=== PATIENT | male | born 1980 | race Two or more races ===

== ENCOUNTER 2019-03-13 07:52 | Emergency (ER) | payer OTHER ==
[~2019-03-13] VITALS: Ht 175.3 cm; Wt 81.6 kg
[2019-03-13 08:36] LABS: Basophils # (auto) 0 uL; Basophils % (auto) 0.3 % (0.0-2.0); Eosinophils # (auto) 0 uL; Eosinophils % (auto) 0.1 % (0.0-7.0); Hemoglobin 15.7 g/dL (13.5-17.5); Lymphocytes # (auto) 0.8 uL; Lymphocytes % (auto) 6.7 % (10.0-50.0); Mean Corpuscular Hemoglobin 30.2 pg (28.0-32.0); Mean Corpuscular Hgb Conc. 34.1 g/dL (32.0-36.0); Mean Corpuscular Volume 88.6 fL (80.0-100.0); Monocytes # (auto) 1.2 uL; Monocytes % (auto) 10.1 % (0.0-12.0); Neutrophils # (auto) 9.7 uL; Neutrophils % (auto) 82.8 % (37.0-80.0); Nucleated Red Blood Cells % 0.1 %; Platelet Count (auto) 198 10^3/uL (140-450); Red Blood Cells 5.19 10^6/uL (4.5-5.90); Red Cell Distribution Width 13.9 % (11.8-14.3); White Blood Cell 11.8 10^3/uL (4.4-10.8)
[2019-03-13 08:53] LABS: Alanine Aminotransferase 29 U/L (16-61); Albumin 4.2 g/dL (3.4-5.0); Anion Gap 8 (5-15); Aspartate Aminotransferase 17 U/L (15-37); Blood Urea Nitrogen 10 mg/dL (7-18); Calcium 8.8 mg/dL (8.5-10.1); Carbon Dioxide 25 mmol/L (21-32); Chloride 111 mmol/L (98-107); GFR African American 107 mL/min; GFR Non-African American 88 mL/min; Glucose 110 mg/dL (74-106); Magnesium 2.3 mg/dL (1.6-2.6); Potassium 3.6 mmol/L (3.5-5.1); Sodium 144 mmol/L (136-145)
[2019-03-13 08:58] LABS: Alkaline Phosphatase 79 U/L (45-117); Bilirubin, Total 0.8 mg/dL (0.2-1.0); Total Protein 7.7 g/dL (6.4-8.2)
[2019-03-13] MEDS ORDERED: SODIUM CHLORIDE 0.9% 1,000 ML IV ONE (09:27)
[2019-03-13] MEDS ORDERED: LORazepam 2MG/ML-1ML VIAL IV ONE (09:30)
[2019-03-13 10:02] LABS: Amphetamine Screen, Urine NEGATIVE (NEGATIVE); Barbiturate Scree,Urine NEGATIVE (NEGATIVE); Benzodiazephine Screen, Urine NEGATIVE (NEGATIVE); Cannabinoid Screen, Urine NEGATIVE (NEGATIVE); Cocaine Screen, Urine POSITIVE (NEGATIVE); Opiate Scree,Urine NEGATIVE (NEGATIVE); Phencyclidine Screen, Urine NEGATIVE (NEGATIVE)
[2019-03-13 10:18] LABS: Urine Bacteria NONE SEEN /hpf (None Seen); Urine Blood Negative /uL (Negative); Urine Hyaline Cast FEW /lpf (0 - 2); Urine Mucus FEW (None Seen); Urine Specific Gravity 1.031 (1.001-1.035); Urine Sperm PRESENT /hpf (None Seen); Urine WBC 4 /hpf (0 - 3)
[2019-03-13 13:26] VITALS: BP 115/77
== END 2019-03-13 13:28 | disposition home or self-care (01) ==
LOC: EDBD 07:52 → ER 07:52
DX: R07.89 Other chest pain (principal); F41.9 Anxiety disorder, unspecified; F10.10 Alcohol abuse, uncomplicated; F14.10 Cocaine abuse, uncomplicated; E78.5 Hyperlipidemia, unspecified
CPT/HCPCS: 36415; 71046; 80053; 80307; 81001; 83735; 84484; 85025; 93005; 94761; 96374; 99284; J2060; J7030

== ENCOUNTER 2020-05-28 19:46 | Inpatient (IN) | payer OTHER ==
[~2020-05-28] VITALS: Ht 180.3 cm; Wt 80.0 kg
[2020-05-28] MEDS ORDERED: ASPirin 81 mg TAB PO ONE (20:15)
[2020-05-28] MEDS ORDERED: SODIUM CHLORIDE 0.9% 500 ML IV ONE (20:15)
[2020-05-28 20:47] LABS: Basophils # (auto) 0.1 10 ^3/uL (0-0.2); Basophils % (auto) 1.1 % (0.0-2.0); Eosinophils # (auto) 0.3 10 ^3/uL (0-0.8); Eosinophils % (auto) 5.2 % (0.0-7.0); Hematocrit 47.6 % (41.0-53.0); Hemoglobin 15.8 g/dL (13.5-17.5); Lymphocytes # (auto) 1.9 10 ^3/uL (0.4-5.4); Mean Corpuscular Hemoglobin 29.6 pg (28.0-32.0); Mean Corpuscular Hgb Conc. 33.2 g/dL (32.0-36.0); Mean Corpuscular Volume 89.4 fL (80.0-100.0); Monocytes # (auto) 0.7 10 ^3/uL (0-1.3); Monocytes % (auto) 11.5 % (0.0-12.0); Neutrophils # (auto) 2.8 10 ^3/uL (1.6-8.6); Neutrophils % (auto) 49.2 % (37.0-80.0); Nucleated Red Blood Cells % 0.1 %; Platelet Count (auto) 188 10^3/uL (140-450); Red Blood Cells 5.32 10^6/uL (4.5-5.90); Red Cell Distribution Width 14.3 % (11.8-14.3); White Blood Cell 5.7 10^3/uL (4.4-10.8)
[2020-05-28 21:01] LABS: INR 0.97 (0.9-1.15); Partial Thromboplastin Time 26.5 sec (23.0-31.2)
[2020-05-28 21:10] LABS: Anion Gap 6 (5-15); Blood Urea Nitrogen 10 mg/dL (7-18); Carbon Dioxide 26 mmol/L (21-32); Chloride 105 mmol/L (98-107); Glucose 95 mg/dL (74-106); Magnesium 2.4 mg/dL (1.6-2.6); Potassium 3.3 mmol/L (3.5-5.1); Sodium 137 mmol/L (136-145)
[2020-05-28 21:15] LABS: Amphetamine Screen, Urine NEGATIVE (NEGATIVE); Barbiturate Scree,Urine NEGATIVE (NEGATIVE); Benzodiazephine Screen, Urine NEGATIVE (NEGATIVE); Cannabinoid Screen, Urine NEGATIVE (NEGATIVE); Cocaine Screen, Urine POSITIVE (NEGATIVE); Opiate Scree,Urine NEGATIVE (NEGATIVE); Phencyclidine Screen, Urine NEGATIVE (NEGATIVE)
[2020-05-28 21:16] LABS: Alanine Aminotransferase 40 U/L (16-61); Alkaline Phosphatase 86 U/L (45-117); Aspartate Aminotransferase 18 U/L (15-37); BUN/Creatinine Ratio 13.7; Bilirubin, Total 0.7 mg/dL (0.2-1.0); GFR African American 153 mL/min; GFR Non-African American 126 mL/min; Total Protein 7.5 g/dL (6.4-8.2)
[2020-05-28] MEDS ORDERED: POTASSIUM CHL 20 Meq TABLET PO ONE (22:15)
[2020-05-28] MEDS ORDERED: TEMAZEPAM 15 MG CAP PO PRN (23:30)
[2020-05-28] MEDS ORDERED: ACETAMINOPHEN 325 MG TAB PO PRN (23:30)
[2020-05-28] MEDS ORDERED: ONDANSETRON HCL 4 MG/2 ML VIAL IV PRN (23:30)
[2020-05-29] MEDS ORDERED: MORPHINE SULF INJ 2 MG/ML SYRINGE 1ML IV PRN (00:30)
[2020-05-29] MEDS ORDERED: NITROGLYCERIN 0.4 MG SL TAB SL PRN (00:30)
[2020-05-29] MEDS ORDERED: METOPROLOL TARTRATE 25 MG TAB PO ONE (00:45)
[2020-05-29 02:45] VITALS: BP 111/79
--- NOTE | 2020-05-29 02:45 | NUR ---
Patient arrived to the unit via stretcher and was able to ambulate to the bed independently. He has no current complaints of pain or shortness of breath. Bed is locked in the lowest position with side rails up x2. Will continue to monitor.
[2020-05-29 05:00] VITALS: BP 116/64
--- NOTE | 2020-05-29 07:00 | NUR ---
Opening Shift Note Received report from night nurse. Assumed care of patient, awake and alert. No S/S of distress/SOB or pain. Instructed on POC and to call for assist PRN, will continue to monitor for changes Q1hr and PRN.
--- NOTE | 2020-05-29 08:00 | NUR ---
Opening Shift Note Assumed care of patient, awake, alert and oriented X4. No S/S of distress/SOB or pain. Tele# 63, A-Fib at 62 bpm. IV to left antecubital, 20 gauge, patent and saline locked. Instructed on POC and to call for assist PRN, verbalized understanding. Bed locked, in lowest position, call light within reach, will continue to monitor for changes Q1hr and PRN.
[2020-05-29 09:00] VITALS: BP 110/80
[2020-05-29 09:34] LABS: BUN/Creatinine Ratio 9.7; Calcium 9.4 mg/dL (8.5-10.1); Potassium 3.7 mmol/L (3.5-5.1)
[2020-05-29] MEDS ORDERED: METOPROLOL TARTRATE 25 MG TAB PO SCH (10:00)
[2020-05-29] MEDS ORDERED: ASPirin 81 mg TAB PO SCH ×2 (10:00→11:45)
[2020-05-29] MEDS ORDERED: DIGOXIN 0.25 MG TAB PO ONE ×2 (11:15→14:45)
--- NOTE | 2020-05-29 11:15 | NUR ---
ROUNDS Dr Torres at bedside for rounds, new orders received and followed through. Patient updated on plan of care, verbalized understanding.
--- NOTE | 2020-05-29 11:30 | NUR ---
CARDIOLOGY Dr Harrison/Celio Elliott at bedside for Cardiology consult, new orders received and followed through. Patient updated on plan of care, verbalized understanding.
[2020-05-29] MEDS: AMIODARONE HCL 200 MG TAB PO SCH ×2 (11:45→22:55)
[2020-05-29] MEDS ORDERED: dilTIAZem 120MG ER CAP PO SCH (11:45)
[2020-05-29] MEDS ORDERED: ASPirin-EC 81 mg tab PO ONE (11:47)
[2020-05-29] MEDS ORDERED: AMIODARONE HCL 200 MG TAB ONE (11:47)
[2020-05-29] MEDS ORDERED: dilTIAZem 120MG ER CAP PO ONE (11:47)
[2020-05-29] MEDS: FAMOTIDINE 20 MG TAB PO SCH ×2 (11:52→22:58)
[2020-05-29] MEDS: ENOXAPARIN SOD 80 MG/0.8ML SYRINGE SC SCH ×2 (11:55→22:58)
[2020-05-29 13:00] VITALS: BP 113/78
[2020-05-29] MEDS ORDERED: FOLIC ACID 1 MG TAB PO ONE (14:00)
[2020-05-29] MEDS ORDERED: chlordiazePOXIDE HCL 5 MG CAP PO PRN (14:00)
[2020-05-29] MEDS ORDERED: THIAMINE HCL 100 MG TAB PO ONE (14:00)
--- NOTE | 2020-05-29 15:06 | NUR ---
Assessment Patient is a 39-year-old male, who is alert and oriented. Patient cognitive abilities are intact. Patient states that he can do all ADLs and ambulate independently. Patient is employed and lives with his (Aga [phone]), patient will return home post discharge and his will provide transportation. Patient states his and children are his support system. Patient stated that he has an Advance Directive on file at [facility]. Discharge planning: Patient will follow up with his PCP post discharge. There is no other discharge plan to identify at the moment. Addendum: 05/29/20 at 1506 by RAOUL NELSON Amended: Links added.
[2020-05-29 17:00] VITALS: BP 93/61
--- NOTE | 2020-05-29 19:00 | NUR ---
Care endorsed to LESLI Marvin, night nurse.
[2020-05-29] MEDS ORDERED: AMIODARONE HCL 200 MG TAB PO SCH (22:00)
[2020-05-29] MEDS ORDERED: ATORVASTATIN 20 MG TAB PO SCH (22:00)
[2020-05-29] MEDS: METOPROLOL TARTRATE 25 MG TAB PO SCH (22:58)
[2020-05-30] VITALS: BP 112/69
[2020-05-30 05:33] VITALS: BP 107/81
[2020-05-30 06:20] LABS: Basophils # (auto) 0.1 10 ^3/uL (0-0.2); Eosinophils # (auto) 0.3 10 ^3/uL (0-0.8); Eosinophils % (auto) 5.1 % (0.0-7.0); Hematocrit 49.2 % (41.0-53.0); Hemoglobin 16.4 g/dL (13.5-17.5); Lymphocytes # (auto) 2.6 10 ^3/uL (0.4-5.4); Lymphocytes % (auto) 40.7 % (10.0-50.0); Mean Corpuscular Hemoglobin 29.8 pg (28.0-32.0); Mean Corpuscular Hgb Conc. 33.4 g/dL (32.0-36.0); Mean Corpuscular Volume 89.2 fL (80.0-100.0); Monocytes # (auto) 0.6 10 ^3/uL (0-1.3); Monocytes % (auto) 9.4 % (0.0-12.0); Neutrophils # (auto) 2.8 10 ^3/uL (1.6-8.6); Neutrophils % (auto) 43.8 % (37.0-80.0); Nucleated Red Blood Cells % 0.1 %; Platelet Count (auto) 207 10^3/uL (140-450); Red Blood Cells 5.52 10^6/uL (4.5-5.90); Red Cell Distribution Width 14.4 % (11.8-14.3); White Blood Cell 6.5 10^3/uL (4.4-10.8)
[2020-05-30 06:24] LABS: Albumin 3.6 g/dL (3.4-5.0); Calcium 9.5 mg/dL (8.5-10.1); Potassium 4.2 mmol/L (3.5-5.1)
[2020-05-30 06:30] LABS: BUN/Creatinine Ratio 12.2; Bilirubin, Total 1.7 mg/dL (0.2-1.0); Total Protein 6.9 g/dL (6.4-8.2)
--- NOTE | 2020-05-30 06:53 | NUR ---
END OF SHIFT NOTE WILL ENDORSE CARE TO DAY SHIFT RN, PT [id number], NO S/S OF DISTRESS OR SOB
[2020-05-30 08:30] VITALS: BP 116/73
[2020-05-30] MEDS ORDERED: dilTIAZem 120MG ER CAP PO SCH (10:00)
[2020-05-30] MEDS ORDERED: THIAMINE HCL 100 MG TAB PO SCH (10:00)
[2020-05-30] MEDS ORDERED: FOLIC ACID 1 MG TAB PO SCH (10:00)
[2020-05-30] MEDS ORDERED: ASPirin 81 mg TAB PO SCH (10:00)
[2020-05-30] MEDS: FAMOTIDINE 20 MG TAB PO SCH (10:53)
[2020-05-30] MEDS: METOPROLOL TARTRATE 25 MG TAB PO SCH (10:56)
[2020-05-30] MEDS: ENOXAPARIN SOD 80 MG/0.8ML SYRINGE SC SCH (10:57)
[2020-05-30] MEDS ORDERED: DILT120C12 PO (12:56)
[2020-05-30] MEDS ORDERED: ASPI81CH43 PO (12:56)
[2020-05-30 13:00] VITALS: BP 102/74
--- NOTE | 2020-05-30 13:15 | NUR ---
ROUNDS Dr Torres at bedside for rounds, new orders received and followed through. Patient updated on plan of care, verbalized understanding.
[2020-05-30 13:34] VITALS: BP 116/73
[2020-05-30] MEDS ORDERED: ATORVASTATIN 20 MG TAB PO SCH (22:00)
== END 2020-05-30 15:30 | disposition home or self-care (01) | DRG 917 ==
LOC: ER 19:48 → TELE-WESTW 19:49
PROVIDERS: ADMIT Nurse Practitioner; ATTEND Internal Medicine
DX: T40.5X1A Poisoning by cocaine, accidental (unintentional), initial encounter (principal); I50.31 Acute diastolic (congestive) heart failure; D68.69 Other thrombophilia; I48.91 Unspecified atrial fibrillation; E87.6 Hypokalemia; F14.10 Cocaine abuse, uncomplicated; E78.5 Hyperlipidemia, unspecified; F10.10 Alcohol abuse, uncomplicated; F41.9 Anxiety disorder, unspecified; Z83.3 Family history of diabetes mellitus
CPT/HCPCS: 36415; 71045; 80048; 80053; 80061; 80307; 83735; 83880; 84443; 84484; 85025; 85379; 85610; 85730; 93005; 93306; 96360; G0378

== ENCOUNTER 2020-11-18 06:07 | Emergency (ER) | payer OTHER ==
[~2020-11-18] VITALS: Ht 182.9 cm; Wt 81.6 kg
[~2020-11-18 06:07] MED LIST: ASPI81CH43 PO; DILT120C12 PO
[2020-11-18 08:08] LABS: Urine WBC None Seen /hpf (0 - 3)
[2020-11-18 08:21] LABS: Basophils # (auto) 0.1 10 ^3/uL (0-0.2); Basophils % (auto) 0.8 % (0.0-2.0); Eosinophils # (auto) 0.1 10 ^3/uL (0-0.8); Eosinophils % (auto) 1.7 % (0.0-7.0); Hematocrit 46.5 % (41.0-53.0); Hemoglobin 15.8 g/dL (13.5-17.5); Lymphocytes # (auto) 1.2 10 ^3/uL (0.4-5.4); Lymphocytes % (auto) 16.6 % (10.0-50.0); Mean Corpuscular Hemoglobin 30.1 pg (28.0-32.0); Mean Corpuscular Hgb Conc. 34.1 g/dL (32.0-36.0); Mean Corpuscular Volume 88.2 fL (80.0-100.0); Monocytes # (auto) 0.7 10 ^3/uL (0-1.3); Monocytes % (auto) 9.3 % (0.0-12.0); Neutrophils # (auto) 5.1 10 ^3/uL (1.6-8.6); Neutrophils % (auto) 71.6 % (37.0-80.0); Nucleated Red Blood Cells % 0.1 %; Red Blood Cells 5.27 10^6/uL (4.5-5.90); Red Cell Distribution Width 13.3 % (11.8-14.3); Urine Bacteria NONE SEEN /hpf (None Seen); Urine Blood Negative /uL (Negative); Urine Specific Gravity 1.001 (1.001-1.035); White Blood Cell 7.2 10^3/uL (4.4-10.8)
[2020-11-18 08:34] LABS: Albumin 4.1 g/dL (3.4-5.0); Amphetamine Screen, Urine NEGATIVE (NEGATIVE); Anion Gap 5 (5-15); Barbiturate Scree,Urine NEGATIVE (NEGATIVE); Benzodiazephine Screen, Urine NEGATIVE (NEGATIVE); Blood Urea Nitrogen 10 mg/dL (7-18); Calcium 8.8 mg/dL (8.5-10.1); Cannabinoid Screen, Urine NEGATIVE (NEGATIVE); Carbon Dioxide 26 mmol/L (21-32); Chloride 108 mmol/L (98-107); Cocaine Screen, Urine NEGATIVE (NEGATIVE); Glucose 80 mg/dL (74-106); Opiate Scree,Urine NEGATIVE (NEGATIVE); Phencyclidine Screen, Urine NEGATIVE (NEGATIVE); Sodium 139 mmol/L (136-145)
[2020-11-18 08:40] LABS: Alanine Aminotransferase 51 U/L (16-61); Alkaline Phosphatase 83 U/L (45-117); Aspartate Aminotransferase 24 U/L (15-37); Bilirubin, Total 0.9 mg/dL (0.2-1.0); GFR African American 143 mL/min; GFR Non-African American 118 mL/min; Total Protein 7.8 g/dL (6.4-8.2)
[2020-11-18] MEDS ORDERED: SODIUM CHLORIDE 0.9% 1,000 ML IV ONE (09:15)
[2020-11-18 10:00] VITALS: BP 125/83
== END 2020-11-18 10:43 | disposition home or self-care (01) ==
LOC: ER 06:07
DX: R00.2 Palpitations (principal); F41.1 Generalized anxiety disorder; F14.10 Cocaine abuse, uncomplicated; F10.10 Alcohol abuse, uncomplicated; F12.10 Cannabis abuse, uncomplicated; E78.5 Hyperlipidemia, unspecified; I10 Essential (primary) hypertension
CPT/HCPCS: 36415; 71045; 80053; 80307; 81001; 84484; 85025; 93005; 96360; 99285; J7030

== ENCOUNTER 2021-01-06 08:04 | Emergency (ER) | payer OTHER ==
[~2021-01-06] VITALS: Ht 185.4 cm; Wt 81.6 kg
[2021-01-06 08:54] LABS: Basophils # (auto) 0.1 10 ^3/uL (0-0.2); Eosinophils # (auto) 0.2 10 ^3/uL (0-0.8); Eosinophils % (auto) 4.1 % (0.0-7.0); Hematocrit 51.6 % (41.0-53.0); Hemoglobin 17.3 g/dL (13.5-17.5); Lymphocytes # (auto) 1.7 10 ^3/uL (0.4-5.4); Lymphocytes % (auto) 28.5 % (10.0-50.0); Mean Corpuscular Hemoglobin 29.8 pg (28.0-32.0); Mean Corpuscular Hgb Conc. 33.6 g/dL (32.0-36.0); Mean Corpuscular Volume 88.6 fL (80.0-100.0); Monocytes # (auto) 0.6 10 ^3/uL (0-1.3); Monocytes % (auto) 9.6 % (0.0-12.0); Neutrophils # (auto) 3.4 10 ^3/uL (1.6-8.6); Neutrophils % (auto) 56.8 % (37.0-80.0); Nucleated Red Blood Cells % 0.1 %; Red Blood Cells 5.83 10^6/uL (4.5-5.90); Red Cell Distribution Width 13.7 % (11.8-14.3); White Blood Cell 5.9 10^3/uL (4.4-10.8)
[2021-01-06 09:25] LABS: Calcium 9.1 mg/dL (8.5-10.1); Chloride 107 mmol/L (98-107); Potassium 4.5 mmol/L (3.5-5.1); Sodium 141 mmol/L (136-145)
[2021-01-06 09:30] LABS: Alanine Aminotransferase 56 U/L (16-61); Albumin 4.1 g/dL (3.4-5.0); Anion Gap 9 (5-15); Aspartate Aminotransferase 24 U/L (15-37); BUN/Creatinine Ratio 8.2; Bilirubin, Total 1.9 mg/dL (0.2-1.0); Blood Urea Nitrogen 8 mg/dL (7-18); Carbon Dioxide 25 mmol/L (21-32); GFR African American 110 mL/min; GFR Non-African American 91 mL/min; Glucose 101 mg/dL (74-106); Magnesium 2.6 mg/dL (1.6-2.6); Total Protein 7.6 g/dL (6.4-8.2)
[2021-01-06 09:33] LABS: Urine WBC None Seen /hpf (0 - 3)
[2021-01-06 09:39] LABS: Alkaline Phosphatase 78 U/L (45-117)
[2021-01-06 09:46] LABS: Urine Bacteria NONE SEEN /hpf (None Seen); Urine Blood Negative /uL (Negative); Urine Mucus FEW (None Seen)
[2021-01-06 10:00] VITALS: BP 112/74
== END 2021-01-06 12:41 | disposition home or self-care (01) ==
LOC: ER 08:04
DX: I48.0 Paroxysmal atrial fibrillation (principal); F41.8 Other specified anxiety disorders; I10 Essential (primary) hypertension; E78.5 Hyperlipidemia, unspecified; Z79.82 Long term (current) use of aspirin; Z79.899 Other long term (current) drug therapy
CPT/HCPCS: 36415; 71046; 80053; 81001; 83735; 84443; 84484; 85025; 85049; 93005

== ENCOUNTER 2021-03-11 22:38 | Emergency (ER) | payer OTHER ==
[~2021-03-11] VITALS: Ht 182.9 cm; Wt 81.6 kg
[2021-03-11 22:38] VITALS: BP 132/79
[2021-03-11 23:12] LABS: Basophils # (auto) 0.1 10 ^3/uL (0-0.2); Basophils % (auto) 1.1 % (0.0-2.0); Eosinophils # (auto) 0.3 10 ^3/uL (0-0.8); Eosinophils % (auto) 5.4 % (0.0-7.0); Hemoglobin 16.1 g/dL (13.5-17.5); Lymphocytes # (auto) 2.2 10 ^3/uL (0.4-5.4); Mean Corpuscular Hemoglobin 29.6 pg (28.0-32.0); Mean Corpuscular Hgb Conc. 34.1 g/dL (32.0-36.0); Mean Corpuscular Volume 86.7 fL (80.0-100.0); Monocytes # (auto) 0.7 10 ^3/uL (0-1.3); Monocytes % (auto) 11.4 % (0.0-12.0); Neutrophils # (auto) 2.5 10 ^3/uL (1.6-8.6); Neutrophils % (auto) 44.1 % (37.0-80.0); Nucleated Red Blood Cells % 0.1 %; Red Blood Cells 5.42 10^6/uL (4.5-5.90); White Blood Cell 5.8 10^3/uL (4.4-10.8)
[2021-03-11 23:31] LABS: Albumin 3.7 g/dL (3.4-5.0); Anion Gap 5 (5-15); Blood Urea Nitrogen 9 mg/dL (7-18); Calcium 8.6 mg/dL (8.5-10.1); Carbon Dioxide 27 mmol/L (21-32); Chloride 103 mmol/L (98-107); Glucose 91 mg/dL (74-106); Potassium 3.5 mmol/L (3.5-5.1); Sodium 135 mmol/L (136-145)
[2021-03-11 23:33] LABS: Alanine Aminotransferase 47 U/L (16-61); Aspartate Aminotransferase 30 U/L (15-37); GFR African American 133 mL/min; GFR Non-African American 110 mL/min
[2021-03-11 23:53] LABS: Alkaline Phosphatase 81 U/L (45-117); Bilirubin, Total 0.7 mg/dL (0.2-1.0); Total Protein 7.3 g/dL (6.4-8.2)
== END 2021-03-12 02:23 | disposition left against medical advice (07) ==
LOC: ER 22:38
DX: R00.2 Palpitations (principal); R07.89 Other chest pain; R53.1 Weakness
CPT/HCPCS: 36415; 71045; 80053; 83880; 84484; 85025; 93005